=== PATIENT | female | born 2000 | race Caucasian/White ===

== ENCOUNTER 2025-04-17 19:22 | Emergency (ER) | payer OTHER, SELFPAY ==
[2025-04-17 19:24] VITALS: BMI 24.7
[2025-04-17 20:05] VITALS: BP 114/74; PULSE 78; RESP 18; TEMP 37.1; O2SAT 97
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
[2025-04-17] MEDS: KETOROLAC INJ 60 MG/2 ML VIAL 30 MG IM (20:30)
== END 2025-04-17 21:57 | disposition home or self-care (01) ==
PROVIDERS: Emergency Provider Emergency Medicine; PCP Family Medicine
DX: S50.812A Abrasion of left forearm, initial encounter (principal); S50.12XA Contusion of left forearm, initial encounter; V43.52XA Car driver injured in collision with other type car in traffic accident, initial encounter
CPT/HCPCS: 73090; 96372; 99283; J1885